=== PATIENT | male | born 2000 | race Caucasian/White ===

== ENCOUNTER 2024-11-01 14:21 | Emergency (ER) | payer MEDICAID ==
[~2024-11-01] VITALS: Ht 167.6 cm; Wt 70.0 kg
[2024-11-01 14:29] VITALS: O2SAT 100
[2024-11-01] MEDS: ONDANSETRON 4MG ODT PO ONE (15:44)
[2024-11-01] MEDS: KETOROLAC 15MG/ML VIAL IM ONE (15:44)
[2024-11-01] MEDS: MAGNESIUM/ALUMINUM HYDROXIDE/SIMETHICONE 30ML UDC PO ONE (15:44)
[2024-11-01] MEDS: FAMOTIDINE 20MG TABLET PO ONE (15:45)
[2024-11-01 16:07] LABS: BASOPHILS % 0.2 % (0.0-2.0); EOSINOPHILS % 2.0 % (0.0-5.0); HEMATOCRIT. 44.9 % (42.0-52.0); HEMOGLOBIN. 15.8 g/dL (14.0-18.0); LYMPHOCYTES % 23.6 % (20.0-50.0); MEAN PLATELET VOLUME 8.9 fl (7.4-10.4); MONOCYTES % 6.0 % (2.0-8.0); NEUTROPHILS % 68.2 % (40.0-76.0); PLATELET 207 x1000/uL (130-400); RED BLOOD CELL COUNT 5.09 mill/uL (4.7-6.1); RED CELL DISTRIBUTION WIDTH 13.4 % (11.6-14.6)
[2024-11-01 16:20] LABS: CREATININE 0.9 mg/dL (0.6-1.3); UREA NITROGEN BLOOD 8 mg/dL (9-23)
[2024-11-01 16:21] LABS: ASPARTATE AMINOTRANSFERASE 18 IU/L (<34)
[2024-11-01 16:22] LABS: BILIRUBIN DIRECT 0.5 mg/dL (<=3.0); BILIRUBIN TOTAL 1.7 mg/dL (0.1-1.0); PROTEIN TOTAL 6.9 g/dL (6.0-8.3)
[2024-11-01 16:30] LABS: CLARITY URINE CLEAR (CLEAR); COLOR URINE YELLOW (YELLOW); GLUCOSE URINE NEGATIVE (NEGATIVE); KETONES URINE NEGATIVE (NEGATIVE); LEUKOCYTE ESTERASE URINE NEGATIVE (NEGATIVE); NITRITE URINE NEGATIVE (NEGATIVE); OCCULT BLOOD URINE NEGATIVE (NEGATIVE); PH URINE 7.0 (4.5-8.0); PROTEIN URINE NEGATIVE (NEGATIVE); SPECIFIC GRAVITY URINE 1.020 (1.005-1.030); UROBILINOGEN URINE 1.0 E.U./dL (0.2-1.0)
[2024-11-01] MEDS ORDERED: NA P133E RC (16:37)
[2024-11-01] MEDS ORDERED: POLY17PO3 MT (16:37)
[2024-11-01] MEDS ORDERED: ONDA4TAB50 MT (16:58)
[2024-11-01 17:03] VITALS: BP 135/79; PULSE 72; RESP 18; TEMP 37.1; O2SAT 100
== END 2024-11-01 17:04 | disposition home or self-care (01) ==
LOC: ER 14:21
DX: K56.41 Fecal impaction (principal); R11.10 Vomiting, unspecified; Z79.899 Other long term (current) drug therapy
CPT/HCPCS: 99285; 74176; 80076; 80048; 81003; 83690; 85025; 36415; 96372; J1885; Q0162